=== PATIENT | male | born 1960 | race Caucasian/White ===

== ENCOUNTER 2021-05-15 22:15 | Inpatient (IN) | payer OTHER ==
[2021-05-16 02:05] LABS: Troponin I 0.016 ng/mL (< 0.028)
[2021-05-16] MEDS ORDERED: Ondansetron ODT 4 MG TAB PO PRN (02:06)
[2021-05-16] MEDS ORDERED: Ondansetron PF 4 MG/2 ML Vial IVP PRN (02:06)
[2021-05-16] MEDS ORDERED: Acetaminophen 650 MG Suppository PR PRN (02:06)
[2021-05-16 02:46] LABS: Anion Gap 17 mmol/L (10-20); BUN (Urea Nitrogen) 17 mg/dL (8.4-25.7); Calc. Creatinine Clearance 0 mL/min (70-130); Calcium 8.7 mg/dL (7.8-10.44); Carbon Dioxide 24 mmol/L (23-31); Chloride 100 mmol/L (98-107); Glucose 362 mg/dL (80-115); Magnesium 1.8 mg/dL (1.6-2.6); Potassium 4.3 mmol/L (3.5-5.1); Sodium 137 mmol/L (136-145)
[2021-05-16 02:57] VITALS: BMI 44.5
[2021-05-16] MEDS: Azithromycin 500 MG in Sodium Chloride 0.9% 250 ML 250 ML IVPB SCH (03:29)
[2021-05-16] MEDS ORDERED: Dextrose 50% Abboject 50 ML SYRINGE SLOW IVP PRN (04:41)
[2021-05-16] MEDS ORDERED: Dextrose 5% in Water 1,000 ML IV PRN (04:41)
[2021-05-16 04:53] LABS: #Lymphocytes 0.9 thou/uL (1.20-3.40); #Monocytes 0.3 thou/uL (0.11-0.59); #Neutrophils 8.5 thou/uL (1.40-6.50); %Basophils 0.3 % (0.0-1.0); %Eosinophils 0.2 % (0.0-10.0); %Lymphocytes 8.7 % (21.0-51.0); %Monocytes 3.5 % (0.0-10.0); %Neutrophils 87.2 % (42.0-75.0); Hemoglobin 10.5 g/dL (14.0-18.0); Mean Corpuscular HGB CONC 32.3 g/dL (32.0-36.0); Mean Corpuscular Hemoglobin 27.3 pg (27.0-31.0); Mean Corpuscular Volume 84.5 fL (78.0-98.0); Mean Platelet Volume 8.5 fL (7.4-10.4); Platelet Count 291 thou/uL (130-400); RBC Distribution Width 16.5 % (11.5-14.5); Red Blood Cell (RBC) Count 3.85 mill/uL (4.70-6.10); White Blood Cell (WBC) Count 9.7 thou/uL (4.8-10.8)
[2021-05-16 05:01] LABS: Troponin I Less than 0.010 ng/mL (< 0.028)
[2021-05-16] MEDS: Furosemide 40 MG/4 ML VIAL SLOW IVP SCH ×2 (06:41→12:06)
[2021-05-16] MEDS: Acetaminophen 325 MG TAB PO PRN ×2 (06:49→12:06)
[2021-05-16] MEDS: Enoxaparin Sodium 40 MG/0.4 ML SYRINGE SC SCH (08:35)
[2021-05-16] MEDS ORDERED: Ipratropium Bromide 2.5 ml Neb NEB PRN (08:48)
[2021-05-16] MEDS ORDERED: Non-Formulary Item 1 EACH (Albuterol Sulfate [Albuterol Sulfate Neb] 0.63 MG/3 ML Vial.Ne NEB PRN (08:48)
[2021-05-16] MEDS ORDERED: Non-Formulary Item 1 EACH (Albuterol Sulfate [Proair Hfa] 8.5 GM Hfa.Aer.Ad) INH PRN (08:48)
[2021-05-16] MEDS ORDERED: Albuterol Sulfate 1.25 MG/3 ML NEB NEB PRN (08:57)
[2021-05-16] MEDS ORDERED: Albuterol 200 PUFF (6.7GM INHALER) INH PRN (08:58)
[2021-05-16] MEDS ORDERED: methylPREDNISolone Sod Succ 40 MG VIAL IVP SCH (09:00)
[2021-05-16] MEDS ORDERED: Non-Formulary Item 1 EACH (Levothyroxine Sodium [Levothyroxine] 25 MCG Capsule) PO SCH (09:00)
[2021-05-16] MEDS ORDERED: MINERAL OIL TOP SCH (09:00)
[2021-05-16] MEDS ORDERED: Non-Formulary Item 1 EACH (Omeprazole [Omeprazole] 20 MG Capsule.Dr) PO SCH (09:00)
[2021-05-16] MEDS ORDERED: PETROLATUM WHITE TOP SCH (09:00)
[2021-05-16] MEDS ORDERED: [UNRECOGNIZED DRUG - OTHER] TOP SCH (09:00)
[2021-05-16] MEDS ORDERED: carBAMazepine 200 MG TAB PO SCH ×2 (09:00→21:00)
[2021-05-16] MEDS: Aspirin 81 mg Enteric Coated Tablet PO SCH (09:49)
[2021-05-16] MEDS: Carvedilol 6.25 MG TAB PO SCH ×2 (09:49→21:49)
[2021-05-16] MEDS: Gabapentin 100 MG CAP PO SCH ×3 (09:49→21:47)
[2021-05-16] MEDS: diphenhydrAMINE 25 MG CAP PO SCH ×2 (09:50→21:47)
[2021-05-16] MEDS: carBAMazepine 200 MG TAB PO SCH ×2 (09:50→21:47)
[2021-05-16] MEDS: Atorvastatin Calcium 10 MG TAB PO SCH (09:50)
[2021-05-16] MEDS: Ibuprofen 600 MG TAB PO SCH ×2 (09:50→21:48)
[2021-05-16] MEDS: Ipratropium Oral Inhaler INH SCH ×3 (10:38→18:47)
[2021-05-16] MEDS: HumaLOG 300 UNITS/3 ML VIAL SC PRN ×2 (12:42→17:16)
[2021-05-16] MEDS: NPH, Human Insulin Isophane 300 UNIT/3 ML VIAL SC SCH ×2 (14:23→21:49)
[2021-05-16] MEDS ORDERED: NPH, Human Insulin Isophane 300 UNIT/3 ML VIAL SC SCH (21:00)
[2021-05-16] MEDS: Triamcinolone 0.1% Cream 15 GM TUBE TOP SCH ×2 (21:50→22:00)
[2021-05-16] MEDS: Acetaminophen/Codeine 30-300mg Tablet PO PRN (23:45)
[2021-05-17] MEDS ORDERED: ALPRAZolam 0.25 MG TAB PO SCH (00:30)
[2021-05-17] MEDS: Azithromycin 500 MG in Sodium Chloride 0.9% 250 ML 250 ML IVPB SCH (02:27)
[2021-05-17] MEDS: Levothyroxine Sodium 25 MCG TAB PO SCH (06:22)
[2021-05-17] MEDS: Furosemide 40 MG/4 ML VIAL SLOW IVP SCH ×2 (06:22→14:56)
[2021-05-17] MEDS: Ipratropium Oral Inhaler INH SCH ×2 (07:16→10:50)
[2021-05-17] MEDS: Gabapentin 100 MG CAP PO SCH ×3 (08:51→21:27)
[2021-05-17] MEDS: Enoxaparin Sodium 40 MG/0.4 ML SYRINGE SC SCH (08:51)
[2021-05-17] MEDS: diphenhydrAMINE 25 MG CAP PO SCH ×2 (08:52→21:31)
[2021-05-17] MEDS: Atorvastatin Calcium 10 MG TAB PO SCH (08:52)
[2021-05-17] MEDS: Carvedilol 6.25 MG TAB PO SCH ×2 (08:52→21:30)
[2021-05-17] MEDS: carBAMazepine 200 MG TAB PO SCH ×2 (08:52→21:29)
[2021-05-17] MEDS: Aspirin 81 mg Enteric Coated Tablet PO SCH (08:52)
[2021-05-17] MEDS: Ibuprofen 600 MG TAB PO SCH ×2 (08:54→21:30)
[2021-05-17] MEDS: NPH, Human Insulin Isophane 300 UNIT/3 ML VIAL SC SCH ×2 (08:54→21:31)
[2021-05-17] MEDS: Triamcinolone 0.1% Cream 15 GM TUBE TOP SCH ×2 (08:55→21:34)
[2021-05-17] MEDS: methylPREDNISolone Sod Succ 40 MG VIAL IVP SCH ×2 (08:57→16:37)
[2021-05-17] MEDS ORDERED: MINERAL OIL TOP SCH (09:00)
[2021-05-17] MEDS ORDERED: [UNRECOGNIZED DRUG - OTHER] TOP SCH (09:00)
[2021-05-17 10:16] LABS: Hemoglobin A1c 9.3 % (4.0-6.0)
[2021-05-17 10:28] LABS: Anion Gap 12 mmol/L (10-20); BUN (Urea Nitrogen) 20 mg/dL (8.4-25.7); Calc. Creatinine Clearance 137 mL/min (70-130); Calcium 8.4 mg/dL (7.8-10.44); Carbon Dioxide 33 mmol/L (23-31); Chloride 98 mmol/L (98-107); Glucose 348 mg/dL (80-115); Magnesium 1.8 mg/dL (1.6-2.6); Potassium 4.6 mmol/L (3.5-5.1); Sodium 138 mmol/L (136-145)
[2021-05-17] MEDS: HumaLOG 300 UNITS/3 ML VIAL SC PRN ×3 (11:34→21:32)
[2021-05-17] MEDS: rOPINIRole HCl 0.25 MG TAB PO SCH ×2 (14:57→21:31)
[2021-05-17] MEDS: Acetaminophen/Codeine 30-300mg Tablet PO PRN (18:00)
[2021-05-17] MEDS: Mometasone 200 MCG/Formoterol 5 MCG 120 PUFF INHALER INH SCH (18:39)
[2021-05-17] MEDS: guaiFENesin ER 600 MG TAB PO SCH (21:31)
[2021-05-18] MEDS: methylPREDNISolone Sod Succ 40 MG VIAL IVP SCH ×3 (00:24→16:47)
[2021-05-18] MEDS: Acetaminophen/Codeine 30-300mg Tablet PO PRN ×3 (00:24→18:48)
[2021-05-18 04:49] LABS: #Eosinphils 0.1 thou/uL (0.0-0.7); #Lymphocytes 0.9 thou/uL (1.20-3.40); #Monocytes 0.4 thou/uL (0.11-0.59); #Neutrophils 11.4 thou/uL (1.40-6.50); %Basophils 0.4 % (0.0-1.0); %Eosinophils 0.5 % (0.0-10.0); %Lymphocytes 6.9 % (21.0-51.0); %Monocytes 2.8 % (0.0-10.0); %Neutrophils 89.5 % (42.0-75.0); Hemoglobin 11.1 g/dL (14.0-18.0); Mean Corpuscular Hemoglobin 27.5 pg (27.0-31.0); Mean Corpuscular Volume 85.7 fL (78.0-98.0); Mean Platelet Volume 7.5 fL (7.4-10.4); Platelet Count 338 thou/uL (130-400); RBC Distribution Width 16.1 % (11.5-14.5); Red Blood Cell (RBC) Count 4.05 mill/uL (4.70-6.10); White Blood Cell (WBC) Count 12.8 thou/uL (4.8-10.8)
[2021-05-18 05:09] LABS: Anion Gap 12 mmol/L (10-20); BUN (Urea Nitrogen) 22 mg/dL (8.4-25.7); Calc. Creatinine Clearance 126 mL/min (70-130); Calcium 9.2 mg/dL (7.8-10.44); Carbon Dioxide 32 mmol/L (23-31); Chloride 96 mmol/L (98-107); Glucose 347 mg/dL (80-115); Potassium 4.9 mmol/L (3.5-5.1); Sodium 135 mmol/L (136-145)
[2021-05-18] MEDS: Levothyroxine Sodium 25 MCG TAB PO SCH (06:15)
[2021-05-18] MEDS: Furosemide 40 MG/4 ML VIAL SLOW IVP SCH ×2 (06:15→14:08)
[2021-05-18] MEDS: Mometasone 200 MCG/Formoterol 5 MCG 120 PUFF INHALER INH SCH ×2 (07:49→18:40)
[2021-05-18] MEDS: Ibuprofen 600 MG TAB PO SCH ×2 (08:50→21:39)
[2021-05-18] MEDS: Carvedilol 6.25 MG TAB PO SCH ×2 (08:50→21:39)
[2021-05-18] MEDS: Enoxaparin Sodium 40 MG/0.4 ML SYRINGE SC SCH (08:50)
[2021-05-18] MEDS: rOPINIRole HCl 0.25 MG TAB PO SCH ×3 (08:50→21:39)
[2021-05-18] MEDS: NPH, Human Insulin Isophane 300 UNIT/3 ML VIAL SC SCH ×2 (08:50→21:40)
[2021-05-18] MEDS: carBAMazepine 200 MG TAB PO SCH ×2 (08:51→21:39)
[2021-05-18] MEDS: Aspirin 81 mg Enteric Coated Tablet PO SCH (08:52)
[2021-05-18] MEDS: diphenhydrAMINE 25 MG CAP PO SCH ×2 (08:52→21:38)
[2021-05-18] MEDS: Atorvastatin Calcium 10 MG TAB PO SCH (08:52)
[2021-05-18] MEDS: Gabapentin 100 MG CAP PO SCH ×3 (08:52→21:40)
[2021-05-18] MEDS: Triamcinolone 0.1% Cream 15 GM TUBE TOP SCH ×2 (08:53→21:41)
[2021-05-18] MEDS: guaiFENesin ER 600 MG TAB PO SCH ×2 (08:53→21:38)
[2021-05-18] MEDS: HumaLOG 300 UNITS/3 ML VIAL SC PRN ×3 (11:28→21:40)
[2021-05-18] MEDS: guaiFENesin/Codeine 200 mg/20 mg 10 ml Cup PO PRN (15:27)
[2021-05-19] MEDS: Acetaminophen/Codeine 30-300mg Tablet PO PRN ×3 (00:40→20:48)
[2021-05-19] MEDS: methylPREDNISolone Sod Succ 40 MG VIAL IVP SCH ×3 (00:40→17:31)
[2021-05-19 04:36] LABS: #Lymphocytes 1.1 thou/uL (1.20-3.40); #Monocytes 0.6 thou/uL (0.11-0.59); #Neutrophils 11.9 thou/uL (1.40-6.50); %Basophils 0.1 % (0.0-1.0); %Eosinophils 0.2 % (0.0-10.0); %Lymphocytes 7.9 % (21.0-51.0); %Monocytes 4.6 % (0.0-10.0); %Neutrophils 87.2 % (42.0-75.0); Mean Corpuscular HGB CONC 31.5 g/dL (32.0-36.0); Mean Corpuscular Hemoglobin 27.1 pg (27.0-31.0); Mean Corpuscular Volume 86.1 fL (78.0-98.0); Mean Platelet Volume 7.4 fL (7.4-10.4); Platelet Count 340 thou/uL (130-400); Red Blood Cell (RBC) Count 4.07 mill/uL (4.70-6.10); White Blood Cell (WBC) Count 13.7 thou/uL (4.8-10.8)
[2021-05-19 04:59] LABS: Phosphorus 2.8 mg/dL (2.3-4.7)
[2021-05-19 05:01] LABS: Anion Gap 12 mmol/L (10-20); BUN (Urea Nitrogen) 30 mg/dL (8.4-25.7); Calc. Creatinine Clearance 134 mL/min (70-130); Carbon Dioxide 34 mmol/L (23-31); Chloride 95 mmol/L (98-107); Glucose 244 mg/dL (80-115); Magnesium 2.1 mg/dL (1.6-2.6); Sodium 136 mmol/L (136-145)
[2021-05-19] MEDS: Levothyroxine Sodium 25 MCG TAB PO SCH (05:30)
[2021-05-19] MEDS: Furosemide 40 MG/4 ML VIAL SLOW IVP SCH ×2 (05:31→13:30)
[2021-05-19] MEDS: Mometasone 200 MCG/Formoterol 5 MCG 120 PUFF INHALER INH SCH ×2 (07:55→19:05)
[2021-05-19] MEDS ORDERED: NPH, Human Insulin Isophane 300 UNIT/3 ML VIAL SC SCH (09:00)
[2021-05-19] MEDS: Carvedilol 6.25 MG TAB PO SCH ×2 (09:14→20:53)
[2021-05-19] MEDS: Atorvastatin Calcium 10 MG TAB PO SCH (09:14)
[2021-05-19] MEDS: diphenhydrAMINE 25 MG CAP PO SCH ×2 (09:14→20:46)
[2021-05-19] MEDS: Aspirin 81 mg Enteric Coated Tablet PO SCH (09:14)
[2021-05-19] MEDS: rOPINIRole HCl 0.25 MG TAB PO SCH ×3 (09:14→20:53)
[2021-05-19] MEDS: Ibuprofen 600 MG TAB PO SCH ×2 (09:15→20:47)
[2021-05-19] MEDS: Gabapentin 100 MG CAP PO SCH ×3 (09:15→20:47)
[2021-05-19] MEDS: guaiFENesin/Codeine 200 mg/20 mg 10 ml Cup PO PRN (09:15)
[2021-05-19] MEDS: carBAMazepine 200 MG TAB PO SCH ×2 (09:16→20:46)
[2021-05-19] MEDS: Enoxaparin Sodium 40 MG/0.4 ML SYRINGE SC SCH (09:16)
[2021-05-19] MEDS: Triamcinolone 0.1% Cream 15 GM TUBE TOP SCH ×2 (09:18→20:53)
[2021-05-19] MEDS: guaiFENesin ER 600 MG TAB PO SCH ×2 (09:18→20:46)
[2021-05-19] MEDS: HumaLOG 300 UNITS/3 ML VIAL SC PRN ×2 (11:21→17:31)
[2021-05-19 16:57] VITALS: TEMP 98.1
[2021-05-19 20:06] VITALS: BP 136/66
[2021-05-19] MEDS: NPH, Human Insulin Isophane 300 UNIT/3 ML VIAL SC SCH (20:49)
== END 2021-05-20 00:55 | DRG 291 ==
LOC: EEVIPCON 22:15 → 2NO 22:15
PROVIDERS: ADMIT Student in an Organized Health Care Education/Training Program; ATTEND Internal Medicine
DX: I11.0 Hypertensive heart disease with heart failure (principal); J96.21 Acute and chronic respiratory failure with hypoxia; I50.33 Acute on chronic diastolic (congestive) heart failure; Z68.41 Body mass index [BMI] 40.0-44.9, adult; J44.1 Chronic obstructive pulmonary disease with (acute) exacerbation; Z20.822 Contact with and (suspected) exposure to COVID-19; I25.10 Atherosclerotic heart disease of native coronary artery without angina pectoris; E11.9 Type 2 diabetes mellitus without complications; B18.2 Chronic viral hepatitis C; F17.210 Nicotine dependence, cigarettes, uncomplicated; E66.01 Morbid (severe) obesity due to excess calories; G25.81 Restless legs syndrome; Z99.81 Dependence on supplemental oxygen; Z88.8 Allergy status to other drugs, medicaments and biological substances; Z79.51 Long term (current) use of inhaled steroids; Z79.82 Long term (current) use of aspirin; Z79.4 Long term (current) use of insulin; Z79.84 Long term (current) use of oral hypoglycemic drugs; Z79.890 Hormone replacement therapy; Z79.899 Other long term (current) drug therapy
CPT/HCPCS: 36415; 36416; 71045; 80048; 83036; 83735; 83880; 84100; 84443; 84484; 85025; 85379; 93306; 93798; 94640; J0456; J1650; J1815; J1940; J1956; J2920; J7050; J7620

== ENCOUNTER 2024-03-19 17:16 | Emergency (ER) | payer OTHER ==
[2024-03-19 18:48] LABS: #Basophils 0.05 10x3/uL (0.0-0.2); %Basophils 0.5 % (0.0-1.0); %Eosinophils 2.1 % (0.0-10.0); %Lymphocytes 9.4 % (21.0-51.0); %Monocytes 11.1 % (0.0-10.0); %Neutrophils 76.5 % (42.0-75.0); Hematocrit 43.2 % (42.0-52.0); Mean Corpuscular HGB CONC 32.4 g/dL (32.0-36.0); Mean Corpuscular Hemoglobin 28.9 pg (27.0-31.0); Mean Corpuscular Volume 89.1 fL (78.0-98.0); Mean Platelet Volume 9.4 fL (7.4-10.4); Platelet Count 230 10x3/uL (130-400); RBC Distribution Width 15.2 % (11.5-14.5); Red Blood Cell (RBC) Count 4.85 mill/uL (4.70-6.10)
[2024-03-19 19:05] LABS: ALT (SGPT) 50 U/L (Less than 45); AST (SGOT) 48 U/L (11-34); Albumin 3.7 g/dL (3.1-4.5); Alkaline Phosphatase 83 U/L (40-110); Anion Gap 12 mmol/L (10-20); BUN (Urea Nitrogen) 11 mg/dL (8.4-25.7); Bilirubin, Total 0.5 mg/dL (0.3-1.2); Calc. Creatinine Clearance 0 mL/min (70-130); Calcium 8.8 mg/dL (7.8-10.44); Carbon Dioxide 25 mmol/L (23-31); Chloride 105 mmol/L (98-107); Estimated GFR 104; Globulin 3.5 g/dL (2.4-3.5); Glucose 158 mg/dL (80-115); Potassium 4.3 mmol/L (3.5-5.1); Protein, Total 7.2 g/dL (5.8-8.1); Sodium 138 mmol/L (136-145)
[2024-03-19] MEDS ORDERED: Nitroglycerin 2% Ointment 1 INCH/1 GM Packet ONE (19:09)
[2024-03-19 19:11] LABS: Troponin I 0.024 ng/mL (< 0.028)
[2024-03-19] MEDS ORDERED: Furosemide 40 MG (4 mL) VIAL ONE (19:31)
[2024-03-19] MEDS ORDERED: Gabapentin 300 MG CAP ONE (20:04)
[2024-03-19] MEDS ORDERED: Albuterol 2.5 MG (3 mL) NEB ONE (20:04)
== END 2024-03-20 00:17 ==
LOC: ERS 17:16
DX: I13.0 Hypertensive heart and chronic kidney disease with heart failure and stage 1 through stage 4 chronic kidney disease, or unspecified chronic kidney disease (principal); E11.22 Type 2 diabetes mellitus with diabetic chronic kidney disease; N18.9 Chronic kidney disease, unspecified; I50.9 Heart failure, unspecified; F17.200 Nicotine dependence, unspecified, uncomplicated
CPT/HCPCS: 36415; 71045; 80053; 83880; 84484; 85025; 93005; 94760; 96374; J1940; J7611